=== PATIENT | female | born 1990 | race African-American/Black ===

== ENCOUNTER 2018-01-19 22:22 | Emergency (ER) | payer OTHER ==
[~2018-01-19] VITALS: Ht 165.1 cm; Wt 83.8 kg
[2018-01-19] MEDS ORDERED: MOTRIN600 MG PO (23:26)
[2018-01-19 23:54] VITALS: BP 125/79
== END 2018-01-20 | disposition home or self-care (01) ==
LOC: EME 22:22
DX: M65.841 Other synovitis and tenosynovitis, right hand (principal); J45.909 Unspecified asthma, uncomplicated; Z88.0 Allergy status to penicillin; Z88.1 Allergy status to other antibiotic agents
CPT/HCPCS: 73110; 99281; 99284